=== PATIENT | male | born 1930 | race Caucasian/White ===

== ENCOUNTER 2016-08-29 14:58 | Inpatient (IN) | payer MEDICARE, OTHER ==
[2016-08-29 15:32] LABS: BASOPHILS % (AUTO) 1 % (0-3); EOSINOPHILS % (AUTO) 2 % (0-9); HEMATOCRIT 36 % (39-53); MEAN CORPUSCULAR HGB CONC 34.9 gm/dl (32.0-36.0); MEAN CORPUSCULAR VOLUME 88 fL (80-100); MONOCYTES % (AUTO) 9.6 % (0-12); NEUTROPHILS % (AUTO) 74.3 % (37-80)
[2016-08-29 15:47] LABS: ALBUMIN 3.4 gm/dl (3.4-5.0); CALCIUM 8.4 mg/dl (8.5-10.1); POTASSIUM 3.9 mMol/L (3.5-5.1)
[2016-08-29 16:17] LABS: APPEARANCE,URINE Slightly Cloudy; BILIRUBIN,URINE NEGATIVE (NEGATIVE); COLOR,URINE Yellow; GLUCOSE, URINE (UA) NEGATIVE (NEGATIVE); KETONES,URINE NEGATIVE (NEGATIVE); LEUKOCYTE ESTERASE ,URINE NEGATIVE (NEGATIVE); NITRATE,URINE NEGATIVE (NEGATIVE); OCCULT BLOOD,URINE 1+ (NEG-TRACE); UROBILINOGEN,URINE 0.2 (0.2-1.0 EU)
[2016-08-29 16:28] LABS: WBC,URINE 0-2 (0-5AV/HPF)
[2016-08-29] MEDS: SODIUM CHLORIDE 0.9% 1000ML 1,000 ML IV SCH (17:15)
[2016-08-29] MEDS: SODIUM CHLORIDE 0.9% FLUSH 10 ML SOL IV SCH (19:54)
[2016-08-29] MEDS ORDERED: OSELTAMIVIR PHOSPHATE 75 MG CAP PO ONE (20:00)
[2016-08-29] MEDS: LOVASTATIN 10 MG TAB PO SCH (20:23)
[2016-08-30] MEDS: SODIUM CHLORIDE 0.9% 1000ML 1,000 ML IV SCH (01:30)
[2016-08-30] MEDS: ACETAMINOPHEN 500 MG 500 MG TAB PO PRN ×2 (01:37→08:36)
[2016-08-30] MEDS: SODIUM CHLORIDE 0.9% FLUSH 10 ML SOL IV SCH ×3 (06:24→17:29)
[2016-08-30 07:22] LABS: CALCIUM 7.8 mg/dl (8.5-10.1); POTASSIUM 3.5 mMol/L (3.5-5.1)
[2016-08-30 07:23] LABS: BASOPHILS % (AUTO) 1 % (0-3); EOSINOPHILS % (AUTO) 1 % (0-9); HEMATOCRIT 33 % (39-53); MEAN CORPUSCULAR HGB CONC 35.6 gm/dl (32.0-36.0); MEAN CORPUSCULAR VOLUME 89 fL (80-100); MONOCYTES % (AUTO) 13.1 % (0-12); NEUTROPHILS % (AUTO) 50.5 % (37-80)
[2016-08-30] MEDS: ASPIRIN EC 81 MG PO SCH (08:36)
[2016-08-30] MEDS: METOPROLOL TARTRATE 50 MG TAB PO SCH (08:36)
[2016-08-30] MEDS ORDERED: ENOXAPARIN 40 MG SOL SC SCH (09:00)
[2016-08-30] MEDS ORDERED: ALBUTEROL NEB SOL 2.5MG/3ML 1 VIAL SOL ONE (09:25)
[2016-08-30] MEDS: OSELTAMIVIR PHOSPHATE 75 MG CAP PO SCH ×3 (09:59→21:24)
[2016-08-30] MEDS: BENAZEPRIL PO SCH (12:51)
[2016-08-30] MEDS: HYDROCHLOROTHIAZIDE PO SCH (12:51)
[2016-08-30] MEDS: [UNRECOGNIZED DRUG - OTHER] PO SCH (12:51)
[2016-08-30] MEDS ORDERED: WARFARIN SODIUM 2.5 MG TAB PO ONE (18:00)
[2016-08-30] MEDS ORDERED: ENOXAPARIN 100 MG SOL SC SCH (21:00)
[2016-08-30] MEDS: LOVASTATIN 10 MG TAB PO SCH (21:22)
[2016-08-31] MEDS: SODIUM CHLORIDE 0.9% FLUSH 10 ML SOL IV SCH ×3 (03:34→17:48)
[2016-08-31] MEDS ORDERED: ENOXAPARIN 80 MG SOL SC SCH (09:30)
[2016-08-31] MEDS: [UNRECOGNIZED DRUG - OTHER] PO SCH (09:49)
[2016-08-31] MEDS: OSELTAMIVIR PHOSPHATE 75 MG CAP PO SCH (09:49)
[2016-08-31] MEDS: BENAZEPRIL PO SCH (09:49)
[2016-08-31] MEDS: HYDROCHLOROTHIAZIDE PO SCH (09:49)
[2016-08-31] MEDS: ASPIRIN EC 81 MG PO SCH (09:49)
[2016-08-31] MEDS: METOPROLOL TARTRATE 50 MG TAB PO SCH (09:49)
[2016-08-31 14:52] VITALS: BP 149/78; PULSE 62; RESP 18; TEMP 97.7; O2SAT 97
[2016-08-31] MEDS ORDERED: WARFARIN SODIUM 5 MG TAB PO SCH (18:00)
== END 2016-08-31 19:00 | disposition home health service (06) | DRG 194 ==
LOC: ED 14:58 → UNDOADMIN 17:08 → ACUTE CARE 17:08
PROVIDERS: ADMIT Emergency Medicine; ATTEND Emergency Medicine
PROC: F01ZDFZ Gait and/or Balance Assessment using Assistive, Adaptive, Supportive or Protective Equipment (ICD-10-PCS; principal; 2016-08-30)
PROC: F01ZCZZ Transfer Assessment (ICD-10-PCS; 2016-08-30)
PROC: F01L5ZZ Range of Motion and Joint Integrity Assessment of Musculoskeletal System - Lower Back / Lower Extremity (ICD-10-PCS; 2016-08-30)
PROC: F02Z1ZZ Dressing Assessment (ICD-10-PCS; 2016-08-30)
PROC: F07Z9FZ Gait Training/Functional Ambulation Treatment using Assistive, Adaptive, Supportive or Protective Equipment (ICD-10-PCS; 2016-08-30)
DX: J09.X2 Influenza due to identified novel influenza A virus with other respiratory manifestations (principal); I82.412 Acute embolism and thrombosis of left femoral vein; R53.1 Weakness
CPT/HCPCS: 36415; 71010; 80048; 80053; 81001; 85025; 85610; 87040; 87804; 99221; 99283; J1650; J7603

== ENCOUNTER 2016-10-21 21:27 | Emergency (ER) | payer MEDICARE, OTHER ==
[2016-10-21 21:43] VITALS: RESP 18; TEMP 98.4
[2016-10-21 22:26] LABS: BASOPHILS % (AUTO) 0 % (0-3); EOSINOPHILS % (AUTO) 3 % (0-9); HEMATOCRIT 43 % (39-53); MEAN CORPUSCULAR HGB CONC 33.1 gm/dl (32.0-36.0); MEAN CORPUSCULAR VOLUME 89 fL (80-100); MONOCYTES % (AUTO) 7.1 % (0-12); NEUTROPHILS % (AUTO) 73.6 % (37-80)
[2016-10-21 22:44] LABS: ALBUMIN 3.6 gm/dl (3.4-5.0); CALCIUM 8.7 mg/dl (8.5-10.1)
[2016-10-21 23:51] VITALS: BP 121/63; PULSE 74; O2SAT 100
== END 2016-10-21 23:40 | disposition home or self-care (01) | DRG 392 ==
LOC: ED 21:27
DX: K52.9 Noninfective gastroenteritis and colitis, unspecified (principal); R06.00 Dyspnea, unspecified; R41.0 Disorientation, unspecified
CPT/HCPCS: 36415; 80053; 83880; 85025; 99284

== ENCOUNTER 2017-07-30 15:51 | Emergency (ER) | payer OTHER, MEDICARE ==
[2017-07-30 16:31] VITALS: RESP 20; TEMP 99.1; O2SAT 97
[2017-07-30 17:13] LABS: BASOPHILS % (AUTO) 1 % (0-3); EOSINOPHILS % (AUTO) 4 % (0-9); HEMATOCRIT 40 % (39-53); MEAN CORPUSCULAR HGB CONC 33.7 gm/dl (32.0-36.0); MEAN CORPUSCULAR VOLUME 89 fL (80-100); MONOCYTES % (AUTO) 7.6 % (0-12); NEUTROPHILS % (AUTO) 55.1 % (37-80)
[2017-07-30 17:34] LABS: CALCIUM 8.7 mg/dl (8.5-10.1); POTASSIUM 3.7 mMol/L (3.5-5.1)
[2017-07-30 18:08] VITALS: BP 114/83; PULSE 72
[2017-07-30 19:25] LABS: APPEARANCE,URINE Slightly Cloudy; BILIRUBIN,URINE NEGATIVE (NEGATIVE); COLOR,URINE Yellow; GLUCOSE, URINE (UA) NEGATIVE (NEGATIVE); KETONES,URINE TRACE (NEGATIVE); LEUKOCYTE ESTERASE ,URINE NEGATIVE (NEGATIVE); NITRATE,URINE NEGATIVE (NEGATIVE); OCCULT BLOOD,URINE TRACE INTACT (NEG-TRACE); PH,URINE 5.5
[2017-07-30 20:24] LABS: RBC,URINE 0-3 (0-3AV/HPF); WBC,URINE 0-1 (0-5AV/HPF)
== END 2017-07-30 18:30 | disposition home or self-care (01) | DRG 948 ==
LOC: ED 15:51
DX: R53.1 Weakness (principal); Z79.01 Long term (current) use of anticoagulants; W19.XXXA Unspecified fall, initial encounter
CPT/HCPCS: 36415; 70450; 80053; 81001; 85025; 85610; 93005; 99283